=== PATIENT | male | born 1985 | race African-American/Black ===

== ENCOUNTER 2021-05-30 02:00 | Inpatient (IN) | payer BC, SELFPAY ==
[2021-05-30 02:44] LABS: Actual Bicarbonate (HCO3a) 21.2 mEq/L (22-28); Analyzer IN Cardio ER; Base Excess (BEa) -1.4 mEq/L (-2.0 to +3.0); CO2 Tension 30.4 mmHg (35.0-45.0); Calcium, Ionized (arterial) 1.11 mmol/L (1.12-1.30); Carboxyhemoglobin (COHb) 0.4 gm% (0.0-3.0); Hemoglobin (Hb) 14.7 g/dL (14.0-18.0); O2 Tension (PaO2), arterial 113.4 mmHg (80.0-100.0); Potassium - ABG Lab 4.07 mmol/L (3.70-5.30); pH, Arterial 7.46 (7.35-7.45)
[2021-05-30 02:47] LABS: Puncture Site RRA
[2021-05-30 02:57] LABS: #Lymphocytes 0.6 thou/uL (1.20-3.40); #Monocytes 0.3 thou/uL (0.11-0.59); #Neutrophils 7.8 thou/uL (1.40-6.50); %Basophils 0.4 % (0.0-1.0); %Monocytes 3.3 % (0.0-10.0); %Neutrophils 89.2 % (42.0-75.0); Hemoglobin 14.3 g/dL (14.0-18.0); Mean Corpuscular Hemoglobin 29.7 pg (27.0-31.0); Mean Corpuscular Volume 87.4 fL (78.0-98.0); Platelet Count 151 thou/uL (130-400); RBC Distribution Width 11.9 % (11.5-14.5); White Blood Cell (WBC) Count 8.8 thou/uL (4.8-10.8)
[2021-05-30 03:15] LABS: ALT (SGPT) 29 U/L (8-55); AST (SGOT) 42 U/L (5-34); Albumin 3.7 g/dL (3.5-5.0); Alkaline Phosphatase 93 U/L (40-110); Anion Gap 11 mmol/L (10-20); BUN (Urea Nitrogen) 13 mg/dL (8.9-20.6); Bilirubin, Total 0.4 mg/dL (0.2-1.2); Calc. Creatinine Clearance 0 mL/min (70-130); Calcium 8.7 mg/dL (7.8-10.44); Carbon Dioxide 28 mmol/L (22-29); Chloride 98 mmol/L (98-107); Globulin 3.5 g/dL (2.4-3.5); Glucose 121 mg/dL (70-105); Potassium 4.2 mmol/L (3.5-5.1); Protein, Total 7.2 g/dL (6.0-8.3); Sodium 133 mmol/L (136-145)
[2021-05-30] MEDS ORDERED: Acetaminophen 500 MG TAB ONE (03:57)
[2021-05-30] MEDS ORDERED: Lorazepam 2 MG/ML VIAL ONE ×3 (03:59→08:08)
[2021-05-30] MEDS ORDERED: cefTRIAXone\\ROCEPHIN 2 GM VIAL ONE (04:05)
[2021-05-30] MEDS ORDERED: methylPREDNISolone Sod Succ/PF 125 MG/2 ML VIAL ONE (04:05)
[2021-05-30] MEDS ORDERED: Azithromycin 500 MG VIAL ONE (04:05)
[2021-05-30] MEDS ORDERED: Acetaminophen 650 MG Suppository PR PRN (04:37)
[2021-05-30] MEDS ORDERED: Ondansetron PF 4 MG/2 ML Vial IVP PRN (04:37)
[2021-05-30] MEDS ORDERED: Ondansetron ODT 4 MG TAB PO PRN (04:37)
[2021-05-30] MEDS ORDERED: Sodium Chloride 0.9% 1,000 ML IV SCH (04:45)
[2021-05-30] MEDS ORDERED: VANCOMYCIN 2 GRAM/400 ML BAG 2 GM in Premix Bag 1 BAG IVPB SCH (05:30)
[2021-05-30 05:55] LABS: SARS-CoV-2 NAA Rapid Test DETECTED (NotDetected)
[2021-05-30] MEDS ORDERED: [UNRECOGNIZED DRUG - REMARK] IVPB PRN (06:52)
[2021-05-30 07:15] LABS: INR-International Normal Ratio 1.1; Prothrombin Time 14.1 sec (12.0-14.7)
[2021-05-30 07:16] LABS: PTT 30.2 sec (22.9-36.1)
[2021-05-30 07:22] LABS: Lactic Acid 1.2 mmol/L (0.5-2.2)
[2021-05-30] MEDS ORDERED: Lorazepam 2 MG/ML VIAL SLOW IVP SCH (07:30)
[2021-05-30 07:45] LABS: Bacteria/HPF None Seen HPF (None Seen); Bilirubin Negative (Negative); Blood, Urine Negative (Negative); Clarity Clear (Clear); Glucose, Urine (Dipstick) Normal (Negative); Ketone, Urine Negative (Negative); Leukocyte Negative Leu/uL (Negative); Nitrite Negative (Negative); Protein, Urine (Dipstick) 70 mg/dL (Neg-Trace); RBC/HPF 0-3 HPF (0-3); Specific Gravity, Urine 1.022 (1.002-1.036); Squamous Epithelial 0-3 HPF (0-3); Urobilinogen Normal mg/dL (Less than 2)
[2021-05-30 08:09] LABS: Legionella Urinary Ag Negative (Negative)
[2021-05-30 08:10] LABS: Strep pneumo Urine Ag NEGATIVE (NEGATIVE)
[2021-05-30 08:13] LABS: Amphetamine Not Detected (NotDetected); Barbiturates Screen Not Detected (NotDetected); Benzodiazepine Screen Not Detected (NotDetected); Cocaine Metabolite Screen Not Detected (NotDetected); Methadone Not Detected (NotDetected); Methamphetamine Not Detected (NotDetected); Opiate Screen Not Detected (NotDetected); Oxycodone Screen Not Detected (NotDetected); Phencyclidine (PCP) Not Detected (NotDetected); THC/Cannabinoid Screen Not Detected (NotDetected); Tricyclic Screen Not Detected (NotDetected)
[2021-05-30] MEDS ORDERED: Dexamethasone 10 MG/ML VIAL ONE ×2 (08:14→10:10)
[2021-05-30] MEDS ORDERED: Enoxaparin Sodium 40 MG/0.4 ML SYRINGE ONE (08:20)
[2021-05-30] MEDS: Enoxaparin Sodium 40 MG/0.4 ML SYRINGE SC SCH ×2 (08:22→19:28)
[2021-05-30] MEDS ORDERED: Morphine 2 MG/ML VIAL SLOW IVP PRN (08:57)
[2021-05-30] MEDS ORDERED: Dexamethasone 4 mg/ml Vial SLOW IVP SCH ×2 (09:00→09:30)
[2021-05-30] MEDS ORDERED: Dexamethasone 6 MG in Sodium Chloride 0.9% 50 ML IVPB SCH (09:00)
[2021-05-30] MEDS ORDERED: Dexamethasone 10 MG in Sodium Chloride 0.9% 50 ML IVPB SCH (09:00)
[2021-05-30] MEDS ORDERED: Furosemide 20 MG/2 ML VIAL SLOW IVP SCH (09:15)
[2021-05-30] MEDS ORDERED: Famotidine/PF 20 mg/2ml Vial ONE (09:31)
[2021-05-30] MEDS ORDERED: Furosemide 20 MG/2 ML VIAL ONE (09:31)
[2021-05-30] MEDS: Famotidine/PF 20 mg/2ml Vial SLOW IVP SCH ×2 (09:35→19:28)
[2021-05-30] MEDS: Dexamethasone 4 mg/ml Vial SLOW IVP SCH ×2 (10:08→19:27)
[2021-05-30] MEDS ORDERED: Morphine 4 MG/ML VIAL ONE (10:47)
[2021-05-30] MEDS: BARICITINIB 2 MG TAB PO SCH (10:52)
[2021-05-30] MEDS ORDERED: Lorazepam 1 MG TAB PO PRN (18:21)
[2021-05-30] MEDS ORDERED: Lorazepam 2 MG/ML VIAL SLOW IVP PRN (18:22)
[2021-05-30] MEDS: Acetaminophen 325 MG TAB PO PRN (20:43)
[2021-05-31] MEDS ORDERED: cefTRIAXone\\ROCEPHIN 2 GM in Sodium Chloride 0.9% 100 ML IVPB SCH (04:00)
[2021-05-31 04:24] LABS: MDiff Complete? YES
[2021-05-31 04:25] LABS: Band 13 % (5-11); Hemoglobin 14.6 g/dL (14.0-18.0); Lymphocytes 5 % (21-51); Mean Corpuscular HGB CONC 34.5 g/dL (32.0-36.0); Mean Corpuscular Hemoglobin 30.5 pg (27.0-31.0); Mean Corpuscular Volume 88.5 fL (78.0-98.0); Mean Platelet Volume 9.1 fL (7.4-10.4); Monocytes 4 % (0-10); Neutrophil 78 % (42-75); Platelet Count 169 thou/uL (130-400); Platelet Morphology Comment Appears Adequate; RBC Distribution Width 11.9 % (11.5-14.5); RBC Morphology Normal; Red Blood Cell (RBC) Count 4.78 mill/uL (4.70-6.10); White Blood Cell (WBC) Count 11.4 thou/uL (4.8-10.8)
[2021-05-31 04:32] LABS: ALT (SGPT) 24 U/L (8-55); AST (SGOT) 30 U/L (5-34); Albumin 3.4 g/dL (3.5-5.0); Alkaline Phosphatase 88 U/L (40-110); Anion Gap 15 mmol/L (10-20); BUN (Urea Nitrogen) 17 mg/dL (8.9-20.6); Bilirubin, Total 0.4 mg/dL (0.2-1.2); Calc. Creatinine Clearance 177 mL/min (70-130); Carbon Dioxide 23 mmol/L (22-29); Chloride 105 mmol/L (98-107); Globulin 3.5 g/dL (2.4-3.5); Glucose 131 mg/dL (70-105); Potassium 4.5 mmol/L (3.5-5.1); Protein, Total 6.9 g/dL (6.0-8.3); Sodium 138 mmol/L (136-145)
[2021-05-31] MEDS ORDERED: Morphine 2 MG/ML VIAL SLOW IVP PRN (07:58)
[2021-05-31] MEDS: Senokot S 8.6-50 MG TAB PO SCH ×2 (10:03→20:16)
[2021-05-31] MEDS: Aspirin 81 mg Enteric Coated Tablet PO SCH (10:03)
[2021-05-31] MEDS: BARICITINIB 2 MG TAB PO SCH (10:03)
[2021-05-31] MEDS: Dexamethasone 4 mg/ml Vial SLOW IVP SCH ×2 (10:04→20:17)
[2021-05-31] MEDS: Famotidine/PF 20 mg/2ml Vial SLOW IVP SCH ×2 (10:06→20:16)
[2021-05-31] MEDS: Enoxaparin Sodium 40 MG/0.4 ML SYRINGE SC SCH ×2 (10:06→20:17)
[2021-06-01] MEDS: Dexamethasone 4 mg/ml Vial SLOW IVP SCH ×2 (08:04→20:13)
[2021-06-01] MEDS: Senokot S 8.6-50 MG TAB PO SCH ×2 (08:04→20:13)
[2021-06-01] MEDS: Enoxaparin Sodium 40 MG/0.4 ML SYRINGE SC SCH ×2 (08:04→20:12)
[2021-06-01] MEDS: Aspirin 81 mg Enteric Coated Tablet PO SCH (08:04)
[2021-06-01] MEDS: Famotidine/PF 20 mg/2ml Vial SLOW IVP SCH ×2 (08:05→20:14)
[2021-06-01] MEDS: BARICITINIB 2 MG TAB PO SCH (09:00)
[2021-06-01] MEDS ORDERED: Amlodipine 5 MG TAB PO SCH (14:10)
[2021-06-02 04:15] LABS: ALT (SGPT) 59 U/L (8-55); AST (SGOT) 55 U/L (5-34); Albumin 3.1 g/dL (3.5-5.0); Alkaline Phosphatase 83 U/L (40-110); Anion Gap 10 mmol/L (10-20); BUN (Urea Nitrogen) 22 mg/dL (8.9-20.6); Bilirubin, Total 0.5 mg/dL (0.2-1.2); CRP (Inflammatory) 6.04 mg/dL (= or < 0.5); Calc. Creatinine Clearance 197 mL/min (70-130); Calcium 8.7 mg/dL (7.8-10.44); Carbon Dioxide 27 mmol/L (22-29); Chloride 101 mmol/L (98-107); Globulin 3.3 g/dL (2.4-3.5); Glucose 102 mg/dL (70-105); Potassium 4.2 mmol/L (3.5-5.1); Protein, Total 6.4 g/dL (6.0-8.3); Sodium 134 mmol/L (136-145)
[2021-06-02] MEDS: Enoxaparin Sodium 40 MG/0.4 ML SYRINGE SC SCH ×2 (09:15→20:44)
[2021-06-02] MEDS: Aspirin 81 mg Enteric Coated Tablet PO SCH (09:15)
[2021-06-02] MEDS: Dexamethasone 4 mg/ml Vial SLOW IVP SCH ×2 (09:15→20:44)
[2021-06-02] MEDS: Senokot S 8.6-50 MG TAB PO SCH ×3 (09:15→21:22)
[2021-06-02] MEDS: Famotidine/PF 20 mg/2ml Vial SLOW IVP SCH (09:15)
[2021-06-02] MEDS: Amlodipine 5 MG TAB PO SCH (09:15)
[2021-06-02] MEDS: BARICITINIB 2 MG TAB PO SCH (09:20)
[2021-06-02] MEDS ORDERED: Simethicone Chewable 80 MG TAB PO PRN (09:32)
[2021-06-02] MEDS ORDERED: Mag-Al 1200 mg/1200 mg/30 ML UDCUP PO PRN (10:07)
[2021-06-02] MEDS: Acetaminophen 325 MG TAB PO PRN (20:44)
[2021-06-03 01:17] LABS: Troponin I Less than 0.010 ng/mL (< 0.028)
[2021-06-03 04:35] LABS: Anion Gap 15 mmol/L (10-20); BUN (Urea Nitrogen) 17 mg/dL (8.9-20.6); Calc. Creatinine Clearance 221 mL/min (70-130); Calcium 8.9 mg/dL (7.8-10.44); Carbon Dioxide 22 mmol/L (22-29); Chloride 98 mmol/L (98-107); Glucose 117 mg/dL (70-105); Potassium 4.6 mmol/L (3.5-5.1); Sodium 130 mmol/L (136-145)
[2021-06-03] MEDS: Aspirin 81 mg Enteric Coated Tablet PO SCH (08:30)
[2021-06-03] MEDS: Dexamethasone 4 mg/ml Vial SLOW IVP SCH ×2 (08:30→20:07)
[2021-06-03] MEDS: Enoxaparin Sodium 40 MG/0.4 ML SYRINGE SC SCH ×2 (08:30→20:07)
[2021-06-03] MEDS: BARICITINIB 2 MG TAB PO SCH (08:30)
[2021-06-03] MEDS: Amlodipine 5 MG TAB PO SCH (08:30)
[2021-06-03] MEDS: Senokot S 8.6-50 MG TAB PO SCH ×3 (08:31→20:19)
[2021-06-04 04:38] LABS: ALT (SGPT) 55 U/L (8-55); AST (SGOT) 30 U/L (5-34); Albumin 3.4 g/dL (3.5-5.0); Alkaline Phosphatase 85 U/L (40-110); Anion Gap 14 mmol/L (10-20); BUN (Urea Nitrogen) 20 mg/dL (8.9-20.6); Bilirubin, Total 0.6 mg/dL (0.2-1.2); Calc. Creatinine Clearance 0 mL/min (70-130); Calcium 9.2 mg/dL (7.8-10.44); Carbon Dioxide 25 mmol/L (22-29); Chloride 96 mmol/L (98-107); Globulin 3.5 g/dL (2.4-3.5); Glucose 114 mg/dL (70-105); Magnesium 1.9 mg/dL (1.6-2.6); Potassium 4.7 mmol/L (3.5-5.1); Protein, Total 6.9 g/dL (6.0-8.3); Sodium 130 mmol/L (136-145)
[2021-06-04 04:39] LABS: Phosphorus 4.1 mg/dL (2.3-4.7)
[2021-06-04 04:58] LABS: MDiff Complete? YES; Mean Corpuscular HGB CONC 33.9 g/dL (32.0-36.0); Mean Corpuscular Hemoglobin 29.9 pg (27.0-31.0); Mean Platelet Volume 8.6 fL (7.4-10.4); Platelet Count 339 thou/uL (130-400); RBC Distribution Width 11.6 % (11.5-14.5); White Blood Cell (WBC) Count 10.6 thou/uL (4.8-10.8)
[2021-06-04 04:59] LABS: Band 10 % (5-11); Lymphocytes 13 % (21-51); Monocytes 2 % (0-10); Neutrophil 75 % (42-75)
[2021-06-04] MEDS: Enoxaparin Sodium 40 MG/0.4 ML SYRINGE SC SCH ×2 (09:28→20:12)
[2021-06-04] MEDS: Dexamethasone 10 MG/ML VIAL SLOW IVP SCH (09:28)
[2021-06-04] MEDS: BARICITINIB 2 MG TAB PO SCH (09:28)
[2021-06-04] MEDS: Amlodipine 10 MG TAB PO SCH (09:28)
[2021-06-04] MEDS: Aspirin 81 mg Enteric Coated Tablet PO SCH (09:28)
[2021-06-04] MEDS: Senokot S 8.6-50 MG TAB PO SCH ×2 (09:29→20:04)
[2021-06-05] MEDS ORDERED: hydrALAZINE 20 MG/ML VIAL SLOW IVP PRN (04:10)
[2021-06-05 04:43] LABS: ALT (SGPT) 72 U/L (8-55); AST (SGOT) 36 U/L (5-34); Albumin 3.2 g/dL (3.5-5.0); Alkaline Phosphatase 81 U/L (40-110); Bilirubin, Direct 0.2 mg/dL (0.1-0.3); Bilirubin, Total 0.5 mg/dL (0.2-1.2); Protein, Total 6.7 g/dL (6.0-8.3)
[2021-06-05] MEDS: Aspirin 81 mg Enteric Coated Tablet PO SCH (08:07)
[2021-06-05] MEDS: Amlodipine 10 MG TAB PO SCH (08:07)
[2021-06-05] MEDS: Enoxaparin Sodium 40 MG/0.4 ML SYRINGE SC SCH ×2 (08:07→20:23)
[2021-06-05] MEDS: BARICITINIB 2 MG TAB PO SCH (08:39)
[2021-06-05] MEDS: Dexamethasone 10 MG/ML VIAL SLOW IVP SCH (08:40)
[2021-06-05] MEDS: Senokot S 8.6-50 MG TAB PO SCH ×2 (09:32→20:23)
[2021-06-05] MEDS: Lisinopril 5 MG TAB PO SCH (10:13)
[2021-06-06] MEDS: Dexamethasone 4 mg/ml Vial SLOW IVP SCH (08:26)
[2021-06-06] MEDS: Aspirin 81 mg Enteric Coated Tablet PO SCH (08:26)
[2021-06-06] MEDS: Senokot S 8.6-50 MG TAB PO SCH ×3 (08:27→21:24)
[2021-06-06] MEDS: Lisinopril 5 MG TAB PO SCH (08:27)
[2021-06-06] MEDS: BARICITINIB 2 MG TAB PO SCH (08:27)
[2021-06-06] MEDS: Amlodipine 10 MG TAB PO SCH (08:27)
[2021-06-06] MEDS: Enoxaparin Sodium 40 MG/0.4 ML SYRINGE SC SCH ×3 (11:03→21:23)
[2021-06-06] MEDS ORDERED: Melatonin 3 MG TAB PO SCH (23:00)
[2021-06-07] MEDS: BARICITINIB 2 MG TAB PO SCH (08:18)
[2021-06-07] MEDS: Enoxaparin Sodium 40 MG/0.4 ML SYRINGE SC SCH ×2 (08:19→21:06)
[2021-06-07] MEDS: Aspirin 81 mg Enteric Coated Tablet PO SCH (08:19)
[2021-06-07] MEDS: Amlodipine 10 MG TAB PO SCH (08:19)
[2021-06-07] MEDS: Dexamethasone 4 mg/ml Vial SLOW IVP SCH (08:20)
[2021-06-07] MEDS ORDERED: Iopamidol-370 76% 500 ML 1 ML ONE (09:59)
[2021-06-07] MEDS: Senokot S 8.6-50 MG TAB PO SCH ×2 (10:28→21:05)
[2021-06-07] MEDS ORDERED: Polyethylene Glycol 3350 17 GM Packet PO SCH (11:00)
[2021-06-07] MEDS ORDERED: Furosemide 40 MG TAB PO SCH (11:00)
[2021-06-07] MEDS: Docusate 100 MG CAP PO SCH (21:05)
[2021-06-07] MEDS: Melatonin 3 MG TAB PO SCH (21:06)
[2021-06-08 07:04] LABS: ALT (SGPT) 54 U/L (8-55); AST (SGOT) 27 U/L (5-34); Albumin 3.2 g/dL (3.5-5.0); Alkaline Phosphatase 100 U/L (40-110); Bilirubin, Direct 0.1 mg/dL (0.1-0.3); Bilirubin, Total 0.3 mg/dL (0.2-1.2); Protein, Total 6.5 g/dL (6.0-8.3)
[2021-06-08] MEDS ORDERED: Furosemide 40 MG TAB PO SCH (07:30)
[2021-06-08] MEDS: Docusate 100 MG CAP PO SCH ×3 (08:48→20:40)
[2021-06-08] MEDS: BARICITINIB 2 MG TAB PO SCH (08:48)
[2021-06-08] MEDS: Dexamethasone 4 MG TAB PO SCH (08:48)
[2021-06-08] MEDS: Senokot S 8.6-50 MG TAB PO SCH ×3 (08:49→20:40)
[2021-06-08] MEDS: Aspirin 81 mg Enteric Coated Tablet PO SCH (08:49)
[2021-06-08] MEDS: Amlodipine 10 MG TAB PO SCH (08:50)
[2021-06-08] MEDS: Enoxaparin Sodium 40 MG/0.4 ML SYRINGE SC SCH ×2 (08:50→22:06)
[2021-06-08] MEDS: Polyethylene Glycol 3350 17 GM Packet PO SCH (08:51)
[2021-06-08 11:36] VITALS: BMI 38.6
[2021-06-08] MEDS: Melatonin 3 MG TAB PO SCH (20:38)
[2021-06-09 06:31] LABS: ALT (SGPT) 49 U/L (8-55); AST (SGOT) 21 U/L (5-34); Albumin 3.1 g/dL (3.5-5.0); Alkaline Phosphatase 107 U/L (40-110); Anion Gap 10 mmol/L (10-20); BUN (Urea Nitrogen) 15 mg/dL (8.9-20.6); Bilirubin, Total 0.3 mg/dL (0.2-1.2); Calc. Creatinine Clearance 206 mL/min (70-130); Carbon Dioxide 25 mmol/L (22-29); Chloride 98 mmol/L (98-107); Globulin 3.1 g/dL (2.4-3.5); Glucose 95 mg/dL (70-105); Protein, Total 6.2 g/dL (6.0-8.3); Sodium 129 mmol/L (136-145)
[2021-06-09] MEDS: Dexamethasone 4 MG TAB PO SCH (08:08)
[2021-06-09] MEDS: Aspirin 81 mg Enteric Coated Tablet PO SCH (08:09)
[2021-06-09] MEDS: BARICITINIB 2 MG TAB PO SCH (08:09)
[2021-06-09] MEDS: Furosemide 40 MG TAB PO SCH (08:09)
[2021-06-09] MEDS: Amlodipine 10 MG TAB PO SCH (08:09)
[2021-06-09] MEDS: Senokot S 8.6-50 MG TAB PO SCH ×2 (08:10→22:51)
[2021-06-09] MEDS: Enoxaparin Sodium 40 MG/0.4 ML SYRINGE SC SCH ×2 (08:11→21:25)
[2021-06-09] MEDS: Polyethylene Glycol 3350 17 GM Packet PO SCH (08:11)
[2021-06-09] MEDS: Melatonin 3 MG TAB PO SCH (22:49)
[2021-06-10] MEDS: Furosemide 40 MG TAB PO SCH (08:09)
[2021-06-10] MEDS: Senokot S 8.6-50 MG TAB PO SCH (08:09)
[2021-06-10] MEDS: Aspirin 81 mg Enteric Coated Tablet PO SCH (08:09)
[2021-06-10] MEDS: Enoxaparin Sodium 40 MG/0.4 ML SYRINGE SC SCH (08:10)
[2021-06-10] MEDS: Dexamethasone 4 MG TAB PO SCH (08:10)
[2021-06-10] MEDS: BARICITINIB 2 MG TAB PO SCH (08:11)
[2021-06-10 08:47] LABS: ALT (SGPT) 45 U/L (8-55); AST (SGOT) 15 U/L (5-34); Albumin 3.3 g/dL (3.5-5.0); Alkaline Phosphatase 104 U/L (40-110); Anion Gap 18 mmol/L (10-20); BUN (Urea Nitrogen) 15 mg/dL (8.9-20.6); Bilirubin, Total 0.3 mg/dL (0.2-1.2); Calc. Creatinine Clearance 207 mL/min (70-130); Carbon Dioxide 21 mmol/L (22-29); Chloride 98 mmol/L (98-107); Globulin 3.3 g/dL (2.4-3.5); Glucose 79 mg/dL (70-105); Potassium 4.7 mmol/L (3.5-5.1); Protein, Total 6.6 g/dL (6.0-8.3); Sodium 132 mmol/L (136-145)
[2021-06-10] MEDS: Polyethylene Glycol 3350 17 GM Packet PO SCH (10:09)
[2021-06-10] MEDS: Amlodipine 10 MG TAB PO SCH (10:19)
[2021-06-10 14:48] VITALS: BP 138/76; TEMP 98.3
== END 2021-06-10 15:14 | DRG 871 ==
LOC: ERS 02:00 → ERHOLD 04:03 → CCU 14:18 → T4-A 06-05 14:45
PROVIDERS: ADMIT Emergency Medicine; ATTEND Emergency Medicine
PROC: 8E0ZXY6 Isolation (ICD-10-PCS; principal; 2021-05-30)
PROC: 5A09357 Assistance with Respiratory Ventilation, Less than 24 Consecutive Hours, Continuous Positive Airway Pressure (ICD-10-PCS; 2021-05-30)
PROC: XW0DXM6 Introduction of Baricitinib into Mouth and Pharynx, External Approach, New Technology Group 6 (ICD-10-PCS; 2021-05-30)
DX: A41.89 Other specified sepsis (principal); U07.1 COVID-19; J12.82 Pneumonia due to coronavirus disease 2019; J80 Acute respiratory distress syndrome; E66.9 Obesity, unspecified; F41.9 Anxiety disorder, unspecified; R00.1 Bradycardia, unspecified; I10 Essential (primary) hypertension; K21.9 Gastro-esophageal reflux disease without esophagitis; K59.00 Constipation, unspecified; Z88.8 Allergy status to other drugs, medicaments and biological substances; Z79.51 Long term (current) use of inhaled steroids; Z79.52 Long term (current) use of systemic steroids; Z79.899 Other long term (current) drug therapy; Z68.38 Body mass index [BMI] 38.0-38.9, adult; Z82.49 Family history of ischemic heart disease and other diseases of the circulatory system
CPT/HCPCS: 36415; 36416; 36600; 71045; 71275; 80048; 80053; 80076; 80306; 81001; 82550; 82728; 82805; 83605; 83735; 83880; 84100; 84145; 84443; 84484; 85025; 85379; 85610; 85652; 85730; 86140; 87040; 87086; 87449; 87899; 93005; 93010; 94660; 96365; 96367; 96375; 96376; 99292; J0360; J0456; J0696; J1100; J1650; J1940; J2060; J2270; J2930; J8540; Q9967; S0028; U0002; U0005